=== PATIENT | female | born 1990 | race Caucasian/White ===

== ENCOUNTER 2017-07-15 23:30 | Emergency (ER) | payer OTHER | END 2017-07-16 00:38 | disposition home or self-care (01) | LOC: FTE 23:30 | DX: J06.9 Acute upper respiratory infection, unspecified (principal); F17.210 Nicotine dependence, cigarettes, uncomplicated | CPT/HCPCS: 99284; Z7502 ==

== ENCOUNTER 2017-10-07 23:36 | Emergency (ER) | payer OTHER | END 2017-10-08 03:45 | disposition home or self-care (01) | LOC: FTE 23:36 | DX: M54.12 Radiculopathy, cervical region (principal); F17.210 Nicotine dependence, cigarettes, uncomplicated | CPT/HCPCS: 72125; 99284-25 ==

== ENCOUNTER 2018-02-05 17:56 | Emergency (ER) | payer OTHER | END 2018-02-05 21:07 | disposition home or self-care (01) | LOC: FTE 17:56 | DX: J02.9 Acute pharyngitis, unspecified (principal); Z87.891 Personal history of nicotine dependence | CPT/HCPCS: 99283; Z7502 ==

== ENCOUNTER 2018-06-25 22:15 | Emergency (ER) | payer OTHER ==
[2018-06-26] MEDS: ACETAMINOPHEN 325 MG TAB PO (01:24)
== END 2018-06-26 02:21 | disposition home or self-care (01) ==
LOC: FTE 22:15
DX: K04.7 Periapical abscess without sinus (principal)
CPT/HCPCS: 99283; Z7502